=== PATIENT | female | born 1995 | race Caucasian/White ===

== ENCOUNTER 2018-03-30 18:17 | Emergency (ER) | payer OTHER, SELFPAY ==
[2018-03-30 18:19] VITALS: BP 133/78; PULSE 95; RESP 16; TEMP 36.7; O2SAT 98; BMI 22.3
--- NOTE | 2018-03-30 20:23 | DI.RAD.S_ITS ---
PROCEDURE: XR ABDOMEN 3V INDICATIONS: abdominal pain, nausea TECHNIQUE: One view chest and two views of the abdomen were acquired. COMPARISON: None. FINDINGS: Surgical changes and devices: None. Chest: Lungs are clear. Heart size is normal. No pleural effusions. No pneumoperitoneum. Abdomen: Bowel gas pattern is nonobstructive but there is lateralization of the bowel loops to the left hemiabdomen. The hepatic silhouette appears enlarged. Bones: No suspicious bony lesions. IMPRESSION: Bowel gas pattern is nonobstructive but there is lateralization of the bowel loops to the left hemiabdomen, and the hepatic silhouette appears enlarged. This raises concern for possible hepatomegaly or an intra-abdominal mass. Dictated by: Santo Tejeda M.D. on 03/30/2018 at 21:31 Approved by: Santo Tejeda M.D. on 03/30/2018 at 21:34
[2018-03-30 20:38] LABS: Add Manual Diff / Slide Review NO; Basophils Percent Auto 1.1 % (0-2); Hematocrit 40.5 % (36-46); Hemoglobin 13.5 g/dL (12.0-16.0); Lymphocytes Percent Auto 19.9 % (25-40); Mean Corpuscular HGB Conc 33.2 % (30-36); Mean Corpuscular Volume 87.2 fL (80-100); Monocytes Percent Auto 5.6 % (3-14); Neutrophils Absolute Auto 8500 /uL (1500-7000); Neutrophils Percent Auto 70.4 % (50-75); Platelet Count 328 X10^3/uL (150-400); Red Blood Cell Count 4.65 X10^6/uL (4.0-5.2); Red Cell Distribution Width 12.5 % (11.6-14.8); White Blood Cell Count 12.1 X10^3/uL (4.5-11.0)
[2018-03-30] MEDS: SODIUM CHLORIDE 0.9% 1,000 ML 1000 ML IV (20:45)
[2018-03-30 20:51] LABS: Alanine Aminotransferase 11 IU/L (9-52); Albumin 4.1 g/dL (3.5-5.0); Albumin Globulin Ratio 1.3 (1.0-2.8); Alkaline Phosphatase 56 U/L (38-126); Aspartate Aminotransferase 14 IU/L (14-36); BUN Creatinine Ratio 12.5 (6-22); Bilirubin Total 0.4 mg/dL (0.2-1.3); Blood Urea Nitrogen 5 mg/dL (7-17); Calcium 9.1 mg/dL (8.4-10.2); Carbon Dioxide 26 mmol/L (22-32); Chloride 105 mmol/L (98-107); Estimated Glomerular Filt Rate > 60.0 mL/min (>60); Globulin 3.1 g/dL (1.7-4.1); Glucose 125 mg/dL (70-100); HEMOLYSIS 19 (0-50); Potassium 4.1 mmol/L (3.4-5.1); Sodium 140 mmol/L (137-145); Total Protein 7.2 g/dL (6.3-8.2)
[2018-03-30 20:54] LABS: Ketones (Beta-Hydroxybutyrate) 0.11 mmol/L (<0.27)
[2018-03-30 20:59] VITALS: BP 108/79; PULSE 92; RESP 15; O2SAT 100
[2018-03-30 21:04] LABS: Lactate (Lactic Acid) 0.6 mmol/L (0.7-2.1)
[2018-03-30 21:08] LABS: Procalcitonin < 0.05 ng/mL (<0.5)
[2018-03-30 21:12] LABS: HCO3 VBG 26 mmol/L (23-28); Oxygen Saturation VBG 49 % (70-75); PCO2 VBG 47.5 mmHg (45-50); PO2 VBG 28 mmHg (35-45); Total CO2 VBG 27 mmol/L (24-29); pH VBG 7.34 (7.33-7.43)
--- NOTE | 2018-03-30 21:57 | DI.CT.S_ITS ---
PROCEDURE: CT ABDOMEN PELVIS W CON INDICATIONS: severe abdominal pain, N/V TECHNIQUE: After the administration of intravenous contrast, 5 mm thick sections acquired from the diaphragm to the symphysis. 5 mm coronal and sagittal reformats were acquired. For radiation dose reduction, the following was used: automated exposure control, adjustment of mA and/or kV according to patient size. COMPARISON: [facility], US, US PELVIC COMPLETE WITH TRANSVAGINAL, 06/11/2017, 10:13. [facility], US, US ABDOMEN COMPLETE, 02/03/2018, 10:28. [facility], US, US PELVIC COMPLETE WITH TRANSVAGINAL, 03/17/2018, 10:21. [facility], CT, CT KUB, 03/12/2017, 21:34. FINDINGS: Image quality: Excellent. ABDOMEN: Lung bases: There is a 4 mm in the right lower lobe. Heart size is normal. Solid organs: Liver is normal in size and enhancement. Gallbladder is normal. Biliary system is non dilated. Pancreas enhances normally. Spleen is normal in size and enhancement. No adrenal nodules. Kidneys demonstrate normal size and enhancement, without hydronephrosis. Peritoneum and bowel: Appendix is normal. There is no inflammatory stranding in the rectal quadrant. No free fluid or free air. Bowel loops demonstrate normal wall thickness and caliber. Nodes and vessels: No retroperitoneal or mesenteric adenopathy by size criteria. Aorta and inferior vena cava are normal in size. Miscellaneous: No ventral hernias. PELVIS: Genitourinary: Bladder wall thickness is normal. There is a 3.9 x 3.4 cm thickwalled cyst in the left adnexa. Right ovary is normal. Uterus is unremarkable. No pathological free air. Miscellaneous: No inguinal hernias or adenopathy. Bones: No suspicious bony lesions. No vertebral body compression fractures. IMPRESSION: 1. A 3.9 x 3.4 thick-walled cystic mass in the left adnexa, most likely a complex left ovarian cyst. Recommend short-term pelvic ultrasound followup in 6-12 weeks. 2. Normal appendix. 3. Normal small bowel obstruction. 4. A 4 mm lung nodule in the right lower lobe. Please see enclosed followup recommendation. No significant discrepancy with the awake overnight monitor radiology preliminary report. Dictated by: Jarad Alvarez M.D. on 03/31/2018 at 5:54 Transcribed by: REGGIE on 03/31/2018 at 6:02 Approved by: Jarad Alvarez M.D. on 04/01/2018 at 7:49
--- NOTE | 2018-03-30 22:32 | ED.GENADULT ---
HPI - General Adult General Chief complaint: Diabetic Problem Stated complaint: diabetic, blood sugar is off, abdominal pain Time Seen by Provider: 03/30/18 18:23 Source: patient Mode of arrival: ambulatory Limitations: no limitations History of Present Illness HPI narrative: 22-year-old female, nonsmoker, type 1 diabetic presents to the emergency department with a chief complaint nausea vomiting in the generalized feeling of being unwell for the past few days. She had been in her normal baseline until about 4 days ago and started feeling fatigued and out of it. She has generalized mild abdominal pain. She states that her blood sugars have been bit off, at times ranging into the 300s. She denies any change in her diet nor change in her diabetic regimen. She has missed no doses. She was seen and evaluated at another facility last night and had a very thorough evaluation before discharging the patient home. She presents today stating she feels little improvement and is concerned that there is something going on. She denies fever or chills nor runny nose or sore throat Onset (ago): day(s) Radiation: non-radiation Pain Consistency: intermittent Relieving factors: none Related Data Allergies Allergy/AdvReac Type Severity Reaction Status Date / Time No Known Drug Allergies Allergy Verified 03/30/18 18:27 Review of Systems Review of Systems All systems reviewed & are unremarkable except as noted in HPI and below Constitutional Denies chills, Denies fever(s), Denies lethargy and Denies weakness Eyes Denies change in vision, Denies eye discharge, Denies irritation and Denies loss of vision ENT Ears, Nose, Mouth, and Throat: Denies change in voice, Denies neck pain and Denies sore throat Cardiovascular Denies chest pain, Denies irregular heart rhythm, Denies lightheadedness, Denies palpitations, Denies dyspnea, Denies dyspnea on exertion and Denies orthopnea Respiratory Denies cough, Denies dyspnea, Denies dyspnea on exertion and Denies wheezing Gastrointestinal Gastrointestinal: Reports abdominal pain, Denies change in bowel habits, Denies diarrhea, Reports nausea and Reports vomiting Genitourinary Denies hematuria, Denies flank pain, Denies urinary incontinence and Denies urinary urgency Musculoskeletal Denies neck pain Integumentary/Breasts Denies pruritus, Denies erythema, Denies rash and Denies wounds Neurologic Denies confusion, Denies loss of vision and Denies weakness Psychiatric Denies anxiety, Denies confusion, Denies depression, Denies homicidal ideation and Denies suicidal ideation Endocrine Denies palpitations Hematologic/Lymphatic Denies easy bruising Allergic/Immunologic Denies wheezing Exam Narrative Exam Narrative: GENERAL: 22-year-old female obviously feeling unwell, curled up under a blanket HEAD: Atraumatic. Normocephalic. No temporal or scalp tenderness. EYES: Pupils equal round and reactive. Extraocular motions intact. No scleral icterus. No injection or drainage. ENT: Nose without bleeding, purulent drainage or septal hematoma. Throat without erythema, tonsillar hypertrophy or exudate. Uvula midline. Airway patent. NECK: Trachea midline. No JVD or lymphadenopathy. Supple, nontender, no meningeal signs. CARDIOVASCULAR: Regular rate and rhythm without murmurs, gallops, or rubs. RESPIRATORY: Clear to auscultation. Breath sounds equal bilaterally. No wheezes, rales, or rhonchi. GASTROINTESTINAL: Abdomen soft, non-tender, nondistended. No hepato-splenomegaly, or palpable masses. No guarding. EXTREMITIES: No clubbing, cyanosis, or edema. No joint tenderness, effusion, or edema noted. BACK: Nontender without deformity or crepitance. No flank tenderness. NEURO: AOx3. SKIN: No rash or erythema. Initial Vital Signs Initial Vital Signs: Vital Signs Temperature 98.1 F 03/30/18 18:19 Pulse Rate 95 H 03/30/18 18:19 Respiratory Rate 16 03/30/18 18:19 Blood Pressure 133/78 03/30/18 18:19 Pulse Oximetry 98 03/30/18 18:19 Course Orders Ordered: ED Orders 03/30/18 20:23 XR abdomen 3V Stat 03/30/18 20:30 Complete Blood Count AUTO DIFF Stat Comprehensive Metabolic Panel Stat Ketones (Beta-Hydroxybutyrate) Stat 03/30/18 20:34 Procalcitonin Stat Venous Blood Gas Stat 03/30/18 20:35 Lactate (Lactic Acid) Stat 03/30/18 21:57 CT abdomen pelvis w con Stat Discontinued Medications Sodium Chloride (Normal Saline 0.9%) 1,000 mls @ 1,000 mls/hr IV BOLUS ONE Stop: 03/30/18 21:21 Last Infusion: 03/30/18 22:30 Dose: 0 mls/hr Admin: 03/30/18 20:45 Dose: 1,000 mls/hr Reevaluation(s) Reevaluation #1: patient feeling much better after fluids and other stated meds Vital Signs - 8 hr 03/30/18 20:59 03/31/18 00:14 Temperature 98.5 F Pulse Rate 92 H 88 Respiratory Rate 15 16 Blood Pressure 96/59 L Blood Pressure [Left Arm] 108/79 Pulse Oximetry 100 100 Medical Decision Making Medical Records Medical records reviewed: Yes I reviewed the patient's medical records. Lab Data Result diagrams: 03/30/18 20:30 03/30/18 20:30 Lab Results 03/30/18 03/30/18 03/30/18 Range/Units 20:30 20:30 20:34 WBC 12.1 H (4.5-11.0) X10^3/uL RBC 4.65 (4.0-5.2) X10^6/uL Hgb 13.5 (12.0-16.0) g/dL Hct 40.5 (36-46) % MCV 87.2 (80-100) fL MCH 29.0 (26-34) PG MCHC 33.2 (30-36) % RDW 12.5 (11.6-14.8) % Plt Count 328 (150-400) X10^3/uL Neut % (Auto) 70.4 (50-75) % Lymph % (Auto) 19.9 L (25-40) % [place] % (Auto) 5.6 (3-14) % Eos % (Auto) 3.0 (2-4) % Baso % (Auto) 1.1 (0-2) % Neut # (Auto) 8500 H (8943-2621) /uL VBG pH (7.33-7.43) VBG pCO2 (45-50) mmHg VBG pO2 (35-45) mmHg VBG HCO3 (23-28) mmol/L VBG Total CO2 (24-29) mmol/L VBG O2 Saturation (70-75) % VBG Base Excess (0-4) mmol/L Sodium 140 (137-145) mmol/L Potassium 4.1 (3.4-5.1) mmol/L Chloride 105 (98-107) mmol/L Carbon Dioxide 26 (22-32) mmol/L BUN 5 L (7-17) mg/dL Creatinine 0.40 L (0.52-1.04) mg/dL Estimated GFR > 60.0 (>60) mL/min BUN/Creatinine Ratio 12.5 (6-22) Glucose 125 H (70-100) mg/dL Lactate (0.7-2.1) mmol/L Calcium 9.1 (8.4-10.2) mg/dL Total Bilirubin 0.4 (0.2-1.3) mg/dL AST 14 (14-36) IU/L ALT 11 (9-52) IU/L Alkaline Phosphatase 56 (38-126) U/L Total Protein 7.2 (6.3-8.2) g/dL Albumin 4.1 (3.5-5.0) g/dL Globulin 3.1 (1.7-4.1) g/dL Albumin/Globulin Ratio 1.3 (1.0-2.8) Procalcitonin < 0.05 (<0.5) ng/mL Ketones 0.11 (<0.27) mmol/L 03/30/18 03/30/18 Range/Units 20:34 20:35 WBC (4.5-11.0) X10^3/uL RBC (4.0-5.2) X10^6/uL Hgb (12.0-16.0) g/dL Hct (36-46) % MCV (80-100) fL MCH (26-34) PG MCHC (30-36) % RDW (11.6-14.8) % Plt Count (150-400) X10^3/uL Neut % (Auto) (50-75) % Lymph % (Auto) (25-40) % [place] % (Auto) (3-14) % Eos % (Auto) (2-4) % Baso % (Auto) (0-2) % Neut # (Auto) (0786-6464) /uL VBG pH 7.34 (7.33-7.43) VBG pCO2 47.5 (45-50) mmHg VBG pO2 28 L (35-45) mmHg VBG HCO3 26 (23-28) mmol/L VBG Total CO2 27 (24-29) mmol/L VBG O2 Saturation 49 L (70-75) % VBG Base Excess 0.0 (0-4) mmol/L Sodium (137-145) mmol/L Potassium (3.4-5.1) mmol/L Chloride (98-107) mmol/L Carbon Dioxide (22-32) mmol/L BUN (7-17) mg/dL Creatinine (0.52-1.04) mg/dL Estimated GFR (>60) mL/min BUN/Creatinine Ratio (6-22) Glucose (70-100) mg/dL Lactate 0.6 L (0.7-2.1) mmol/L Calcium (8.4-10.2) mg/dL Total Bilirubin (0.2-1.3) mg/dL AST (14-36) IU/L ALT (9-52) IU/L Alkaline Phosphatase (38-126) U/L Total Protein (6.3-8.2) g/dL Albumin (3.5-5.0) g/dL Globulin (1.7-4.1) g/dL Albumin/Globulin Ratio (1.0-2.8) Procalcitonin (<0.5) ng/mL Ketones (<0.27) mmol/L Point of Care Testing Glucose POC 202 Urine Dip Bedside Urine Glucose 1000 mg/dl Bedside Urine Bilirubin - Negative Bedside Urine Ketone - Negative Urine Specific [place] 1.015 Bedside Urine Occult Blood - Negative Bedside Urine pH 6.0 Bedside Urine Protein - Negative Bedside Urine Urobilinogen - Negative Bedside Urine Nitrite - Negative Bedside Urine Leukocytes - Negative Esterase Point of care testing: Point of Care Testing Glucose POC 202 Urine Dip Bedside Urine Glucose 1000 mg/dl Bedside Urine Bilirubin - Negative Bedside Urine Ketone - Negative Urine Specific [place] 1.015 Bedside Urine Occult Blood - Negative Bedside Urine pH 6.0 Bedside Urine Protein - Negative Bedside Urine Urobilinogen - Negative Bedside Urine Nitrite - Negative Bedside Urine Leukocytes - Negative Esterase Imaging Data CT scan - abdomen: Attestation: I personally reviewed and interpreted this imaging study as follows: Radiologist's impression: NAP MDM Narrative Medical decision making narrative: Multiple diagnoses considering including DKA which is not likley given lack of acidosis, ketones, or anion gap. Abdominal pathology considered but thought less likely given CT. UTI/Pyelo considered but thought less likely given lack of urine findings Discharge Plan Departure Patient Disposition: Home Clinical Impression: Vomiting Discharge Date/Time: 03/31/18 00:17 Interventions: ED Discharge Assessment Last Done: 03/31/18 00:14 Instructions: DI for Vomiting -- Adult Activity Restrictions/Additional Instructions: 1. Drink plenty of fluids with frequent small sips. 2. For the next 24 hours a clear liquid diet is advised. After that please employ a brat diet which would include bananas, rice, apples, toast. 3. Please take medications as directed. 4. Please follow-up with your doctor in the next 1-2 days. Call the office for an appointment. 5. Please return to the emergency Department for any worsening or persistent symptoms, such as increasing pain or fever. Referrals: Ricardo Garay MD [Primary Care Provider] - Stand Alone Forms: Work Release Note
[2018-03-31 00:14] VITALS: BP 96/59; PULSE 88; RESP 16; TEMP 36.9; O2SAT 100
== END 2018-03-31 00:17 | disposition home or self-care (01) ==
PROVIDERS: Emergency Provider Emergency Medicine; PCP Internal Medicine
DX: R11.10 Vomiting, unspecified (principal)
CPT/HCPCS: 36591; 74021; 74177; 80053; 81003; 82009; 82805; 83605; 84145; 85025; 96360; 96361; 99283; 99285; Q9967